=== PATIENT | male | born 1990 | race Caucasian/White ===

== ENCOUNTER 2023-06-02 03:22 | Emergency (ER) | payer OTHER ==
[~2023-06-02] VITALS: Ht 177.8 cm; Wt 167.8 kg
[2023-06-02 03:40] LABS: BASOPHILS ABSOLUTE AUTO 0.05 K/mm3 (0.00-0.23); BASOPHILS PERCENT AUTO 1 % (0-2); EOSINOPHILS ABSOLUTE AUTO 0.18 K/mm3 (0.00-0.68); EOSINOPHILS PERCENT AUTO 2 % (0-6); Hematocrit 44.2 % (37.0-53.0); Hemoglobin 14.5 g/dL (13.5-17.5); Mean Corpuscular HGB 28.5 pg (26.0-34.0); Mean Corpuscular HGB Conc 32.8 g/dL (31.5-36.5); Mean Corpuscular Volume 87 fL (80-100); Mean Platelet Volume 9.9 fL (9.1-12.4); Platelet Count 261 K/mm3 (150-400); RDW Coefficient Variation 12.8 % (11.7-14.2); RDW Standard Deviation 40.4 fL (35.1-46.3); Red Blood Cell Count 5.09 M/mm3 (4.30-5.90); White Blood Cell Count 9.56 K/mm3 (4.00-11.30)
[2023-06-02 03:41] LABS: IMMATURE GRAN ABSOLUTE AUTO 0.03 K/mm3 (0.00-0.10); IMMATURE GRAN PERCENT AUTO 0 % (0-1); LYMPHOCYTES ABSOLUTE AUTO 5.56 K/mm3 (0.84-5.20); LYMPHOCYTES PERCENT AUTO 58 % (21-46); MONOCYTES ABSOLUTE AUTO 0.88 K/mm3 (0.16-1.47); MONOCYTES PERCENT AUTO 9 % (4-13); NEUTROPHILS ABSOLUTE AUTO 2.86 K/mm3 (1.96-9.15); NEUTROPHILS PERCENT AUTO 30 % (41-73)
[2023-06-02 03:47] LABS: Source, Urine Clean Catch
[2023-06-02 03:53] LABS: Bilirubin, Urine Neg (Neg); Blood, Urine Neg (Neg); Glucose Qualitative, Urine Neg (Neg); Ketones, Urine Neg (Neg); Leukocyte Esterase, Urine Neg (Neg); Nitrite, Urine Neg (Neg); Protein, Urine Neg (Neg); Specific Gravity, Urine 1.025 (1.003-1.022); Urobilinogen, Urine NORM (Normal)
[2023-06-02 04:05] LABS: Albumin/Globulin Ratio 1.1 (0.8-1.8); Appearance, Urine Clear (Clear); Bilirubin, Total 0.5 mg/dL (0.1-1.0); Bun/Creatinine Ratio 17.2 (12.0-20.0); Calcium, Blood 9.3 mg/dL (8.5-10.1); Color, Urine Yellow (P-Yellow); Creatinine, Blood 0.76 mg/dL (0.60-1.20); Globulin, Blood 3.7 g/dL (2.2-4.0); Potassium, Blood 3.2 mmol/L (3.5-5.5); Total Protein, Blood 7.7 g/dL (6.4-8.2)
[2023-06-02 05:06] VITALS: BP 148/74
== END 2023-06-02 05:05 | disposition home or self-care (01) ==
LOC: ER 03:22
PROVIDERS: Emergency Medicine
DX: K80.70 Calculus of gallbladder and bile duct without cholecystitis without obstruction (principal)
CPT/HCPCS: 76705; 80053; 81003; 83690; 85025; 96361; 96374; 96375; 99284-25; J1170; J2405; J7030

== ENCOUNTER 2024-01-16 17:51 | Emergency (ER) | payer OTHER ==
[~2024-01-16] VITALS: Ht 182.9 cm; Wt 147.0 kg
[2024-01-16 19:34] LABS: BASOPHILS ABSOLUTE AUTO 0.03 K/mm3 (0.00-0.23); BASOPHILS PERCENT AUTO 1 % (0-2); EOSINOPHILS PERCENT AUTO 2 % (0-6); Hematocrit 44.1 % (37.0-53.0); Hemoglobin 14.7 g/dL (13.5-17.5); IMMATURE GRAN ABSOLUTE AUTO 0.01 K/mm3 (0.00-0.10); IMMATURE GRAN PERCENT AUTO 0 % (0-1); LYMPHOCYTES ABSOLUTE AUTO 2.04 K/mm3 (0.84-5.20); LYMPHOCYTES PERCENT AUTO 31 % (21-46); MONOCYTES ABSOLUTE AUTO 0.59 K/mm3 (0.16-1.47); MONOCYTES PERCENT AUTO 9 % (4-13); Mean Corpuscular HGB Conc 33.3 g/dL (31.5-36.5); Mean Corpuscular Volume 84 fL (80-100); Mean Platelet Volume 9.9 fL (9.1-12.4); NEUTROPHILS ABSOLUTE AUTO 3.86 K/mm3 (1.96-9.15); NEUTROPHILS PERCENT AUTO 58 % (41-73); Platelet Count 248 K/mm3 (150-400); RDW Coefficient Variation 12.4 % (11.7-14.2); RDW Standard Deviation 37.8 fL (35.1-46.3); Red Blood Cell Count 5.25 M/mm3 (4.30-5.90); White Blood Cell Count 6.63 K/mm3 (4.00-11.30)
[2024-01-16 19:59] LABS: Albumin, Blood 4.2 g/dL (3.4-5.0); Albumin/Globulin Ratio 1.1 (0.8-1.8); Bilirubin, Total 0.8 mg/dL (0.1-1.0); Bun/Creatinine Ratio 17.2 (12.0-20.0); Calcium, Blood 9.9 mg/dL (8.5-10.1); Creatinine, Blood 0.7 mg/dL (0.60-1.20); Globulin, Blood 3.7 g/dL (2.2-4.0); Potassium, Blood 4.1 mmol/L (3.5-5.5); Total Protein, Blood 7.9 g/dL (6.4-8.2)
[2024-01-16] MEDS ORDERED: Mag Hydrox/AL Hydrox/Simeth 30 ML UDC PO ONE (23:20)
[2024-01-16] MEDS ORDERED: Famotidine 10 MG/ML 2ML Vial IV ONE (23:25)
[2024-01-16] MEDS ORDERED: Lidocaine 2% Viscous Soln 15 ML UDC PO ONE (23:25)
[2024-01-17] MEDS ORDERED: Morphine Sulfate 4 MG/1 ML Injection IV ONE (00:35)
[2024-01-17 05:01] VITALS: BP 138/73
== END 2024-01-17 05:12 | disposition home or self-care (01) ==
LOC: ER 17:51
PROVIDERS: Student in an Organized Health Care Education/Training Program
DX: K80.20 Calculus of gallbladder without cholecystitis without obstruction (principal); Z88.0 Allergy status to penicillin
CPT/HCPCS: 74177; 76705; 80053; 83690; 85025; 96374; 96375; 99284-25; A9270; J2270; Q9967

== ENCOUNTER 2024-07-02 23:57 | Observation (INO) | payer OTHER ==
[~2024-07-02] VITALS: Ht 182.9 cm; Wt 158.8 kg
[2024-07-03] MEDS ORDERED: Ketorolac Tromethamine 30mg Vial IV ONE (00:15)
[2024-07-03 01:14] LABS: BASOPHILS ABSOLUTE AUTO 0.04 K/mm3 (0.00-0.23); BASOPHILS PERCENT AUTO 1 % (0-2); EOSINOPHILS ABSOLUTE AUTO 0.07 K/mm3 (0.00-0.68); EOSINOPHILS PERCENT AUTO 1 % (0-6); Hematocrit 42.9 % (37.0-53.0); Hemoglobin 14.6 g/dL (13.5-17.5); IMMATURE GRAN ABSOLUTE AUTO 0.03 K/mm3 (0.00-0.10); IMMATURE GRAN PERCENT AUTO 0 % (0-1); LYMPHOCYTES ABSOLUTE AUTO 2.15 K/mm3 (0.84-5.20); LYMPHOCYTES PERCENT AUTO 29 % (21-46); MONOCYTES ABSOLUTE AUTO 0.61 K/mm3 (0.16-1.47); MONOCYTES PERCENT AUTO 8 % (4-13); Mean Corpuscular HGB 28.7 pg (26.0-34.0); Mean Corpuscular Volume 84 fL (80-100); Mean Platelet Volume 10.1 fL (9.1-12.4); NEUTROPHILS ABSOLUTE AUTO 4.61 K/mm3 (1.96-9.15); NEUTROPHILS PERCENT AUTO 62 % (41-73); Platelet Count 217 K/mm3 (150-400); RDW Coefficient Variation 12.6 % (11.7-14.2); RDW Standard Deviation 38.3 fL (35.1-46.3); Red Blood Cell Count 5.08 M/mm3 (4.30-5.90); White Blood Cell Count 7.51 K/mm3 (4.00-11.30)
[2024-07-03 01:35] LABS: Albumin, Blood 3.8 g/dL (3.4-5.0); Bilirubin, Total 0.8 mg/dL (0.1-1.0); Bun/Creatinine Ratio 20.3 (12.0-20.0); Calcium, Blood 9.5 mg/dL (8.5-10.1); Creatinine, Blood 0.74 mg/dL (0.60-1.20); Globulin, Blood 3.7 g/dL (2.2-4.0); Potassium, Blood 3.7 mmol/L (3.5-5.5); Total Protein, Blood 7.5 g/dL (6.4-8.2)
[2024-07-03] MEDS ORDERED: Ketorolac Tromethamine 15mg Vial IV ONE (03:55)
[2024-07-03] MEDS ORDERED: FLU VACC TS2024-25(6MOS UP)/PF 45 MCG/0.5 ML SYRINGE IM SCH (09:55)
[2024-07-03] MEDS ORDERED: Ondansetron HCl 2 MG / ML 2ML Vial IV PRN (09:55)
[2024-07-03] MEDS ORDERED: Ketorolac Tromethamine 30mg Vial IV PRN (10:00)
[2024-07-03 11:41] VITALS: BP 164/96
[2024-07-03] MEDS ORDERED: Pantoprazole Sodium 40 MG Injection IV SCH (12:00)
--- NOTE | 2024-07-03 18:16 | NUR ---
SHIFT NOTE: PT A/OX4 AMBULATES AND IS ABLE TO MAKE HIS NEEDS KNONW. HE ENDORSED PAIN ON ARRIVAL, PAIN WAS MANAGED WITH TORADOL. PT SEEN BY DR. MUNIZ WITH PLAN TO HAVE PEBBLES TOMORROW. PT ON CLEAR LIQUIDS WITH NO REPORTS OF PAIN. AT BEDSIDE. CARE CONTINUES
[2024-07-03 19:38] VITALS: BP 133/88
--- NOTE | 2024-07-04 04:29 | NUR ---
SHIFT SUMMARY AOX4. VSS. DENIES ANY ABD PAIN T/O NIGHT. REPORTS PREVIOUS RUQ PAIN HASNT OCCURRED SINCE MEDICATED W/IV TORADOL ON DAY SHIFT 07/03. DENIES N/V. TOLERATING CLEAR LIQUIDS. PASSING FLATUS. HAS BEEN NPO SINCE 0000 FOR PLANNED SURGERY THIS AM. IND IN RM & CALL LIGHT IN REACH.
[2024-07-04 04:46] LABS: BASOPHILS ABSOLUTE AUTO 0.03 K/mm3 (0.00-0.23); BASOPHILS PERCENT AUTO 1 % (0-2); EOSINOPHILS ABSOLUTE AUTO 0.11 K/mm3 (0.00-0.68); EOSINOPHILS PERCENT AUTO 3 % (0-6); Hematocrit 41.7 % (37.0-53.0); Hemoglobin 14.3 g/dL (13.5-17.5); IMMATURE GRAN ABSOLUTE AUTO 0.01 K/mm3 (0.00-0.10); IMMATURE GRAN PERCENT AUTO 0 % (0-1); LYMPHOCYTES ABSOLUTE AUTO 1.42 K/mm3 (0.84-5.20); LYMPHOCYTES PERCENT AUTO 34 % (21-46); MONOCYTES ABSOLUTE AUTO 0.46 K/mm3 (0.16-1.47); MONOCYTES PERCENT AUTO 11 % (4-13); Mean Corpuscular HGB 29.1 pg (26.0-34.0); Mean Corpuscular HGB Conc 34.3 g/dL (31.5-36.5); Mean Corpuscular Volume 85 fL (80-100); Mean Platelet Volume 10.1 fL (9.1-12.4); NEUTROPHILS ABSOLUTE AUTO 2.13 K/mm3 (1.96-9.15); NEUTROPHILS PERCENT AUTO 51 % (41-73); Platelet Count 197 K/mm3 (150-400); RDW Coefficient Variation 12.8 % (11.7-14.2); RDW Standard Deviation 39.6 fL (35.1-46.3); Red Blood Cell Count 4.92 M/mm3 (4.30-5.90); White Blood Cell Count 4.16 K/mm3 (4.00-11.30)
[2024-07-04 05:07] LABS: Albumin, Blood 3.4 g/dL (3.4-5.0); Albumin/Globulin Ratio 0.9 (0.8-1.8); Bilirubin, Total 3.1 mg/dL (0.1-1.0); Calcium, Blood 9.3 mg/dL (8.5-10.1); Creatinine, Blood 0.64 mg/dL (0.60-1.20); Globulin, Blood 3.6 g/dL (2.2-4.0); Potassium, Blood 4.1 mmol/L (3.5-5.5)
[2024-07-04 05:41] VITALS: BP 139/74
[2024-07-04 08:00] VITALS: BP 129/75
[2024-07-04] MEDS ORDERED: Enoxaparin 40 MG/0.4 ML SYR SC SCH (09:00)
[2024-07-04 09:43] LABS: Bilirubin, Direct 1.9 mg/dL (0.0-0.3); Bilirubin, Indirect 1.2 mg/dL (0.1-0.7); Bilirubin, Total 3.1 mg/dL (0.1-1.0)
--- NOTE | 2024-07-04 10:32 | NUR ---
PT IS NEEDING AN MRCP PER DR. MUNIZ, UNABLE TO DO MRCP TODAY PER TECHNOLOGY APPLICATIONS TEACHER PT WILL NOT PROPERLY FIT INTO MRI MACHINE, PT WILL HAVE TO WAIT UNTIL TOMORROW TO HAVE IT DONE AT [facility]IENT LOCATION, DR. MUNIZ NOTIFIED, STATES TO NOTIFY HOSPITALIST TO INITIATE TRANSFER PROCESS AT ANOTHER FACILITY FOR PT TO GET A POSSIBLE ERCP OR HAVE PT GO TO [facility] HIMSELF.
[2024-07-04 15:05] VITALS: BP 152/93
--- NOTE | 2024-07-04 17:44 | NUR ---
SUMMARY PT'S SURGERY CANCELLED TODAY PER DR. MUNIZ, PENDING MRCP TOMORROW, PT HAS SPOKEN TO DR. MUNIZ AND DR. SCHMITZ AND AWARE OF PLAN FOR POSSIBLE TRANSFER FOR ERCP, PT HAS DENIED ANY ABD PAIN TODAY, TOLERATED CLEAR LIQUIDS WELL, TORADOL GIVEN FOR H/A ONCE TODAY, NO ACUTE CHANGES THIS SHIFT.
[2024-07-04 19:25] VITALS: BP 152/86
[2024-07-05 05:10] VITALS: BP 132/67
--- NOTE | 2024-07-05 05:56 | NUR ---
SHIFT SUMMARY AOX4. VSS. DENIES ANY ABD PAIN OR DISCOMFORT. DENIES N/V. TOLERATING CLEAR LIQUIDS. REPORTS PASSING FLATUS. DENIES ANY FURTHER NEEDS. PENDING MRCP @[facility] TODAY, THEN WILL POTENTIALLY TRANSFER TO ANOTHER FACILITY PENDING RESULTS. IND IN RM. CALL LIGHT IN REACH & PT ABLE TO MAKE NEEDS KNOWN.
[2024-07-05 06:30] LABS: Albumin, Blood 3.5 g/dL (3.4-5.0); Bilirubin, Total 1.2 mg/dL (0.1-1.0); Bun/Creatinine Ratio 8.6 (12.0-20.0); Calcium, Blood 9.5 mg/dL (8.5-10.1); Creatinine, Blood 0.7 mg/dL (0.60-1.20); Globulin, Blood 3.6 g/dL (2.2-4.0); Total Protein, Blood 7.1 g/dL (6.4-8.2)
[2024-07-05 07:13] VITALS: BP 117/64
--- NOTE | 2024-07-05 08:39 | NUR ---
SPOKE W/OUTPT IMAGING, PT CURRENTLY IS NOT SCHEDULED FOR MRCP. ATTEMPTED TO CALL MD TO CLARIFY THERE IS NO ACTIVE ORDER FOR IMAGING. ALSO CLARIFIED W/OUTPT IMAGING THAT PT DOES NEED TO BE NPO FOR 4 HRS PRIOR TO SCAN IF WE PROCEED. PRIMARY RN NOTIFIED.
--- NOTE | 2024-07-05 10:13 | NUR ---
MORNING NOTE THIS RN ASSUMED CARE AT APPROX 0715. PATIENT ALERT AND ORIENTED X4. INDEPENDENT IN ROOM. COMMUNICATES NEEDS EFFECTIVELY. VSS. DX WITH SYMPTOMATIC CHOLELITHIASIS - AWAITING OUTPATIENT MRCP. AWAITING NOTIFICATION OF SCHEDULED TIME - [employer]. DENIES ABD PAIN, N/V. PER IMAGING, PATIENT MUST BE NPO X4 HOURS PRIOR TO PROCEDURE. NPO AT THIS TIME DUE TO UNKN SCHEDULED TIME. TOLERATING CLEAR LIQUID DIET T/O NIGHT PER NIGHT RN. CALL LIGHT IN REACH.
--- NOTE | 2024-07-05 13:02 | NUR ---
PATIENT TRANSFERRED OFF UNIT AND FACILITY VIA TRANSPORT SERVICE FOR SCHEDULED OUTPATIENT MRCP
[2024-07-05 14:41] VITALS: BP 151/93
--- NOTE | 2024-07-05 14:44 | NUR ---
PATIENT BACK TO ROOM FOLLOWING OUTPATIENT IMAGING
[2024-07-05 14:48] VITALS: BP 115/74
--- NOTE | 2024-07-05 17:20 | NUR ---
SHIFT SUMMARY NO ACUTE EVENTS SINCE PREVIOUS NOTES. VS REMAIN STABLE. MRCP COMPLETED TODAY. INDEPENDENT IN ROOM. VOIDING. DENIES ABD PAIN. TOLERATING FULL LIQUID DIET POST MRCP. CALL LIGHT IN REACH. WILL CONTINUE TO MONITOR AND REPORT TO ONCOMING RN.
[2024-07-05 20:25] VITALS: BP 131/80
[2024-07-06] VITALS (14 sets, daily range): BP systolic 122–176; BP diastolic 66–99
--- NOTE | 2024-07-06 04:14 | NUR ---
SHIFT SUMMARY NO ACUTE CHANGES OVERNIGHT. VSS. NPO SINCE MIDNIGHT R/T SURG LATER TODAY. VOIDING. IND IN ROOM. CALL LIGHT IN REACH, BED IN LOWEST POSITION, WILL REPORT TO DAY RN.
[2024-07-06 05:57] LABS: Albumin, Blood 3.5 g/dL (3.4-5.0); Bilirubin, Total 0.9 mg/dL (0.1-1.0); Bun/Creatinine Ratio 10.1 (12.0-20.0); Calcium, Blood 9.5 mg/dL (8.5-10.1); Creatinine, Blood 0.79 mg/dL (0.60-1.20); Globulin, Blood 3.5 g/dL (2.2-4.0); Potassium, Blood 4.3 mmol/L (3.5-5.5)
[2024-07-06] MEDS ORDERED: Indocyanine Green 25 MG Vial IV STA (07:24)
--- NOTE | 2024-07-06 08:44 | NUR ---
ASSUMPTION OF CARE THIS RN ASSUMED CARE AT APPROX 0715. PATIENT ALERT AND ORIENTED X4. INDEPENDENT IN ROOM. VSS. NPO SINCE MIDNIGHT FOR LAP PEBBLES - INDOCYANINE GREEN ADMINISTERED PER EMAR. PREOP EDUCATION PROVIDED. DENIES ABD PAIN, N/V. CALL LIGHT IN REACH.
[2024-07-06] MEDS ORDERED: Lactated Ringer's 1,000 ML IV SCH (13:25)
[2024-07-06] MEDS ORDERED: Ondansetron HCl 2 MG / ML 2ML Vial IV PRN (13:25)
[2024-07-06] MEDS ORDERED: FentaNYL Citrate 50 MCG/ML 2 ML Injection IV PRN ×3 (13:30→13:35)
[2024-07-06] MEDS ORDERED: HYDROmorphone HCl/Pf 1MG SYR IV PRN (13:30)
[2024-07-06] MEDS ORDERED: CefOXitin Sodium 2,000 MG in NS 50 ML IV SCH (13:40)
--- NOTE | 2024-07-06 14:00 | NUR ---
INTO [facility] VIA [employer].HISTORY AND ALLERGIES REVIEWED. LUNGS CLEAR. PT DENIES SLEEP APNEA. SATS>90% ON RA. NPO STATUS CONFIRMED. PT SLIDES AND GLASSES RETURNED TO ROOM 210 PER HIS REQUEST.
[2024-07-06] MEDS ORDERED: Bupivacaine 0.5% HCl 5 MG/ML 30MLVIAL ONE (14:06)
[2024-07-06] MEDS ORDERED: propofoL 40 ML IV ONE (14:11)
[2024-07-06] MEDS ORDERED: Midazolam HCl 1MG / ML 2ML Vial ONE (14:11)
[2024-07-06] MEDS ORDERED: HYDROmorphone HCl/Pf 1MG SYR ONE (14:11)
[2024-07-06] MEDS ORDERED: FentaNYL Citrate 50 MCG/ML 5 ML Injection ONE (14:11)
[2024-07-06] MEDS ORDERED: Rocuronium Bromide 10 MG/ML 5ML Injection IV ONE (14:14)
[2024-07-06] MEDS ORDERED: Ondansetron HCl 2 MG / ML 2ML Vial ONE (14:59)
[2024-07-06] MEDS ORDERED: Dexamethasone Sod Phos 10 MG/ML 1ML VIAL ONE (14:59)
[2024-07-06] MEDS ORDERED: Sugammadex Sodium 200 MG/2ML SDV (100 MG/ML) ONE ×2 (15:22→15:25)
[2024-07-06] MEDS ORDERED: Ketorolac Tromethamine 30mg Vial ONE (16:12)
[2024-07-06] MEDS ORDERED: FentaNYL Citrate 50 MCG/ML 2 ML Injection ONE (16:12)
--- NOTE | 2024-07-06 16:56 | NUR ---
RETURN TO UNIT PATIENT S/P LAP PEBBLES. RETURNED TO UNIT VIA [facility] AT APPROX 1645. PATIENT ALERT, ABLE TO STAND AND TRANSFER FROM [facility] TO BED. VSS. ON ROOM AIR, SATs >90%. RR EVEN, UNLABORED. X4 LAP SITES WITH WOUND GLUE C/D/I. DENIES N/V - SNACKS AND WATER WITHIN REACH. PAIN TOLERABLE @ THIS TIME. CALL LIGHT WITHIN REACH. AT BEDSIDE.
--- NOTE | 2024-07-06 18:17 | NUR ---
SHIFT SUMMARY NO ACUTE CHANGES SINCE RETURN TO UNIT. PATIENT LETHARGIC, EASILY AROUSABLE WITH VERBAL STIMULI. VSS. X4 LAP SITES C/D/I. DENIES PAIN AT THIS TIME. TOLERATING PO INTAKE. LR INFUSING TO GRAVITY. CALL LIGHT IN REACH. AT BEDSIDE. WILL CONTINUE TO MONITOR AND REPORT TO ONCOMING RN.
[2024-07-06] MEDS ORDERED: ACET325 PO (19:15)
[2024-07-06] MEDS ORDERED: IBUP400 PO (19:16)
--- NOTE | 2024-07-06 19:30 | NUR ---
DISCHARGE NOTE PATIENT REQUESTING TO DC HOME TODAY - CLEARED BY MD MUNIZ PER NURSE NOTIFY ORDER. VSS. S/P LAP PEBBLES - X4 LAP SITES C/D/I WITH WOUND GLUE. PAIN TOLERABLE. TOLERATING REGULAR DIET. MD SCHMITZ CONTACTED - DC HOME ORDERED. IV REMOVED. DC EDUCATION PROVIDED TO BOTH PATIENT AND HIS - BOTH STATE UNDERSTANDING. PATIENT DISCHARGED AT APPROX 1930. PERSONAL BELONGINGS WITH PATIENT.
== END 2024-07-06 19:15 | disposition home or self-care (01) ==
LOC: ER 23:57 → SURS 23:58
PROVIDERS: Student in an Organized Health Care Education/Training Program; Surgery; ADMIT Internal Medicine
PROC: 0FT44ZZ Resection of Gallbladder, Percutaneous Endoscopic Approach (ICD-10-PCS; principal; 2024-07-06 14:30)
PROC: 8E0W4CZ Robotic Assisted Procedure of Trunk Region, Percutaneous Endoscopic Approach (ICD-10-PCS; principal; 2024-07-06 14:30)
DX: K80.10 Calculus of gallbladder with chronic cholecystitis without obstruction (principal); E66.01 Morbid (severe) obesity due to excess calories; E80.6 Other disorders of bilirubin metabolism; K76.0 Fatty (change of) liver, not elsewhere classified; Z68.43 Body mass index [BMI] 50.0-59.9, adult; Z88.0 Allergy status to penicillin; Z88.1 Allergy status to other antibiotic agents
CPT/HCPCS: 36415; 71046; 74177; 74181; 76705; 80053; 82247; 82248; 83690; 85025; 88304; 93005; 93010; 96374-59; 96375; 96376; 99285-25; G0378; J0694; J1100; J1171; J1885; J2250; J2405; J2470; J2704; J3010; J7120; Q9967